=== PATIENT | female | born 1970 | race Asian ===

== ENCOUNTER 2018-11-25 08:40 | Outpatient (CLI) | payer BC | END 2018-11-25 16:00 | disposition home or self-care (01) | LOC: MAMMO 08:40 | DX: N64.9 Disorder of breast, unspecified (principal) ==

== ENCOUNTER 2020-07-27 10:29 | Outpatient (CLI) | payer BC | END 2020-07-27 21:02 | disposition home or self-care (01) | LOC: MAMMO 10:29 | PROVIDERS: ATTEND Family Medicine | DX: N64.4 Mastodynia (principal); Z12.31 Encounter for screening mammogram for malignant neoplasm of breast ==